=== PATIENT | female | born 1995 | race Caucasian/White ===

== ENCOUNTER 2017-10-07 20:09 | Observation (INO) | payer MEDICAID, SELFPAY ==
[~2017-10-07] VITALS: Ht 167.6 cm; Wt 82.0 kg
[2017-10-07] MEDS ORDERED: NS 2,000 ML IV ONE (21:30)
[2017-10-07] MEDS ORDERED: ONDANSETRON 4MG/2ML VIAL (J2405) IV ONE (21:30)
[2017-10-07 21:44] LABS: BASO % 0.2 % (0.0-1.0); IMMATURE GRANULOCYTE % 0.6 % (0-0); LYMPH # 1.8 10^3/uL (1.5-6.5); LYMPH % 14.3 % (24.0-44.0); MEAN CORPUSCULAR HEMOGLOBIN 29.7 pg (27.0-33.0); MEAN CORPUSCULAR HGB CONC 35.2 g/dl (32.0-36.5); MEAN CORPUSCULAR VOLUME 84.3 fl (80.0-96.0); MONO # 0.9 10^3/uL (0.0-0.8); MONO % 6.8 % (0.0-5.0); NEUTROPHILS # 9.8 10^3/uL (1.8-7.7); NEUTROPHILS % 78.1 % (36.0-66.0); PLATELET COUNT, AUTOMATED 334 10^3/uL (150-450); RED CELL DISTRIBUTION WIDTH 12.6 % (11.5-14.5); WHITE BLOOD COUNT 12.6 10^3/uL (4.0-10.0)
[2017-10-07 22:07] LABS: ALBUMIN 4.4 GM/DL (3.2-5.2); ALBUMIN/GLOBULIN RATIO 0.98 (1.00-1.93); ALKALINE PHOSPHATASE 95 U/L (45-117); ALT/SGPT 81 U/L (12-78); ANION GAP 16 MEQ/L (8-16); AST/SGOT 57 U/L (7-37); BILIRUBIN,DIRECT 2.1 MG/DL (0.0-0.2); BILIRUBIN,TOTAL 3.2 MG/DL (0.2-1.0); BLOOD UREA NITROGEN 10 MG/DL (7-18); CARBON DIOXIDE LEVEL 17 MEQ/L (21-32); CHLORIDE LEVEL 107 MEQ/L (98-107); CREATININE FOR GFR 0.88 MG/DL (0.55-1.02); GLOMERULAR FILTRATION RATE > 60.0 (>60); GLUCOSE, FASTING 91 MG/DL (70-105); POTASSIUM SERUM 4.3 MEQ/L (3.5-5.1); SODIUM LEVEL 140 MEQ/L (136-145); TOTAL PROTEIN 8.9 GM/DL (6.4-8.2)
--- NOTE | 2017-10-07 22:50 | REPUSA ---
CLINICAL HISTORY: Cramping. TECHNIQUE: Realtime sonographic images were obtained in multiple projections. COMMENTS: A single intrauterine is identified with crown/rump length of 2.3 cm which corresponds to t he mean estimated gestational age of 9 weeks 0 days. heart motion is present, 185 beats per mi nute. A very small subchorionic hemorrhage is seen to the right of gestational sac. Evaluation of the maternal adnexal regions and cul-de-sac reveals no abnormalities. The estimated date of delivery is 05/12/2018. No gross anomaly is identified. IMPRESSION: 1. Single, live, intrauterine gestation, 9 weeks 0 days based on today's crown/rump length. 2. A very small subchorionic hemorrhage is seen to the right of gestational sac. 3. Estimated date of delivery is 05/12/2018.
--- NOTE | 2017-10-07 23:00 | REPUSA ---
CLINICAL HISTORY: Pain. TECHNIQUE: Realtime sonographic images were obtained in multiple projections. COMMENTS: The gallbladder is distended and filled with hyperdense echogenic sludge and/or gallstones. The gall bladder wall is thickened measuring up to 4 mm. Positive Parada's sign is reported. The findings ar e compatible with cholecystitis. The CBD measures 3 mm. The right kidney measures 9.7 cm with no evidence of hydronephrosis, renal cyst, mass or calculus. The liver is grossly unremarkable. IMPRESSION: The gallbladder is filled with echogenic sludge and/or gallstones. Findings are consistent with chol ecystitis.
[2017-10-07] MEDS ORDERED: PIPERACILLIN/TAZOBACTAM SOD 3.375 GM in APPROPRIATE DILUENT 1 EA IV ONE (23:30)
[2017-10-08 00:35] VITALS: BP 122/56
[2017-10-08] MEDS ORDERED: ACETAMINOPHEN 500 MG TAB PO PRN (01:30)
[2017-10-08] MEDS: PROMETHAZINE INJ 25 MG/ML VIAL (J2550) IV PRN ×3 (01:42→23:58)
[2017-10-08] MEDS: LR 1,000 ML IV SCH ×4 (01:42→23:58)
[2017-10-08] MEDS: PRENATAL VITAMINS CHEWABLE TABLET PO SCH (07:57)
[2017-10-08 08:00] VITALS: BP 119/54
[2017-10-08 09:31] LABS: MEAN CORPUSCULAR HEMOGLOBIN 30.2 pg (27.0-33.0); MEAN CORPUSCULAR HGB CONC 35.4 g/dl (32.0-36.5); MEAN CORPUSCULAR VOLUME 85.3 fl (80.0-96.0); PLATELET COUNT, AUTOMATED 258 10^3/uL (150-450); RED CELL DISTRIBUTION WIDTH 12.9 % (11.5-14.5); WHITE BLOOD COUNT 9.9 10^3/uL (4.0-10.0)
[2017-10-08 10:03] LABS: ALBUMIN 3.2 GM/DL (3.2-5.2); ALKALINE PHOSPHATASE 68 U/L (45-117); ALT/SGPT 60 U/L (12-78); ANION GAP 11 MEQ/L (8-16); AST/SGOT 37 U/L (7-37); BLOOD UREA NITROGEN 7 MG/DL (7-18); CALCIUM LEVEL 8.4 MG/DL (8.5-10.1); CARBON DIOXIDE LEVEL 17 MEQ/L (21-32); CHLORIDE LEVEL 114 MEQ/L (98-107); GLOMERULAR FILTRATION RATE > 60.0 (>60); GLUCOSE, FASTING 73 MG/DL (70-105); POTASSIUM SERUM 3.9 MEQ/L (3.5-5.1); SODIUM LEVEL 142 MEQ/L (136-145); TOTAL PROTEIN 6.4 GM/DL (6.4-8.2)
--- NOTE | 2017-10-08 15:49 | CR ---
DATE OF CONSULTATION: 10/08/2017 CHIEF COMPLAINT: Nausea and vomiting. HISTORY OF PRESENT ILLNESS: The patient is a 22-year-old female who lives in [place], currently here visiting her boyfriend, for the last three days she has had lots of nausea and vomiting, With the vomiting, she was having some abdominal pains. She was just found out that she was a couple of weeks ago and has not setup any care for that as of yet. She is planning to do so in two more weeks when she returns to [place]. In the emergency room (ER), her laboratories were slightly elevated with an elevated white count, elevated bilirubin and liver function tests (LFTs) and an ultrasound was obtained showing that there was a gallbladder filled with stones and sludge, also with a thickened gallbladder wall concerning for acute cholecystitis. Therefore, I was called to evaluate. Due to her elevated bilirubins, there is concern for potential choledocholithiasis as well and we do not currently have gastroenterology (GI) capable of doing an endoscopic retrograde cholangiopancreatography (ERCP) on a female. However, I agreed to monitor her under region manager's care in case this resolves on its own over the next 24 hours. Currently, she denies any nausea or vomiting. No fever, sweats or chills. Her abdominal pain has completely subsided and at this time, she is just currently hungry. She has been nothing by mouth since reaching the emergency room, but the rest of her symptoms have resolved. PAST MEDICAL HISTORY: Negative. PAST SURGICAL HISTORY: Negative. ALLERGIES: None. HOME MEDICATIONS: None. SOCIAL HISTORY: Denies drug, alcohol, or tobacco abuse. FAMILY HISTORY: Noncontributory. REVIEW OF SYSTEMS: Pertinent positives and negatives stated in the history of present illness (HPI). PHYSICAL EXAMINATION: GENERAL: Alert and oriented times three. No acute distress. VITAL SIGNS: Temperature 98.5, pulse 63, respirations 18, blood pressure 122/56, pulse oximetry 98% on room air. HEENT: Pupils are equally round and reactive to light and accommodation. HEART: S1, S2, regular rate and rhythm. LUNgS: Clear to auscultation bilaterally. ABDOMEN: Soft, nontender, nondistended. Bowel sounds positive. EXTREMITIES: No clubbing, cyanosis, or edema. LABORATORY DATA: White count 12.6 on admission, down to 9.9, hemoglobin 11.5, total bilirubin 3.2, down to 3, direct bilirubin 2.1, down to 2, AST 57, down to 37, ALT 81, down to 60. IMAGING STUDIES: Gallbladder ultrasound shows a distended gallbladder filled with stones with a wall thickening up to 4 mm with a positive sonographic Parada's sign. ASSESSMENT AND PLAN: The patient is a 22-year-old female, currently nine weeks , presenting with signs of acute cholecystitis and possible choledocholithiasis. Recommendation at this time is to start her on a clear liquid diet. Continue to monitor her laboratories for another 24 hours. If her bilirubins continue to trend downwards, she can be discharged home and continue with antibiotics for another week. However, if her bilirubins stay where they are or start to increase then she may need to be transferred to [place] to consider endoscopic retrograde cholangiopancreatography (ERCP), because our photographer finish (GI) biodiesel plant operations engineer here is not comfortable performing the ERCP on a female. I discussed the risks and benefits of surgery with her. At this point, we are going to try to avoid surgery during the first trimester if possible and since her laboratories and white count have improved, I do not think that she is in any need for emergent surgery at this time. If her symptoms do not resolve or start to get worse again then we will definitely need to do so. Thank you for the consultation. I will continue to follow the patient with you.
--- NOTE | 2017-10-08 15:56 | HPE ---
DATE OF ADMISSION: 10/07/2017 REASON FOR ADMISSION: Cholecystitis. HISTORY OF PRESENT ILLNESS: The patient is a 22-year-old 1 who presented who presented at 9 weeks to the emergency department with acute onset of nausea, vomiting, and abdominal pain. Upon evaluation in the emergency department, she had a positive Parada's sign along with ultrasound of her gallbladder that showed sludge concerning for gallstones, findings that were consistent with cholecystitis. The patient denied any vaginal bleeding or cramping. Her course was initiated in [place] where she currently lives and she is visiting her boyfriend. PAST MEDICAL HISTORY: None. PAST SURGICAL HISTORY: None. PAST OBSTETRICAL HISTORY: She is a 1. MEDICATIONS: vitamins. ALLERGIES: She has no known drug allergies. PHYSICAL EXAMINATION: Vital signs are stable. She is afebrile. Lungs are clear to auscultation bilaterally. Cardiovascular: Heart regular rate and rhythm. Her abdomen is soft, mildly tender. Pelvic examination is deferred. ASSESSMENT: The patient is a 22-year-old 1 at 9 weeks with cholecystitis. PLAN: Admit for observation. She will be placed on nothing by mouth status and we will obtain a general surgery consultation for cholecystitis.
[2017-10-08 16:00] VITALS: BP 131/66
[2017-10-08 20:46] VITALS: BP 133/71
[2017-10-09 04:00] VITALS: BP 125/69
[2017-10-09 07:33] LABS: MEAN CORPUSCULAR HEMOGLOBIN 29.8 pg (27.0-33.0); MEAN CORPUSCULAR HGB CONC 35.3 g/dl (32.0-36.5); MEAN CORPUSCULAR VOLUME 84.4 fl (80.0-96.0); PLATELET COUNT, AUTOMATED 200 10^3/uL (150-450); WHITE BLOOD COUNT 7.5 10^3/uL (4.0-10.0)
[2017-10-09] MEDS: LR 1,000 ML IV SCH ×3 (07:47→23:45)
[2017-10-09 07:55] LABS: ALBUMIN 2.7 GM/DL (3.2-5.2); ALBUMIN/GLOBULIN RATIO 0.84 (1.00-1.93); ALKALINE PHOSPHATASE 67 U/L (45-117); ALT/SGPT 67 U/L (12-78); ANION GAP 13 MEQ/L (8-16); AST/SGOT 47 U/L (7-37); BILIRUBIN,TOTAL 2.9 MG/DL (0.2-1.0); BLOOD UREA NITROGEN 3 MG/DL (7-18); CARBON DIOXIDE LEVEL 15 MEQ/L (21-32); CHLORIDE LEVEL 110 MEQ/L (98-107); CREATININE FOR GFR 0.42 MG/DL (0.55-1.02); GLOMERULAR FILTRATION RATE > 60.0 (>60); GLUCOSE, FASTING 59 MG/DL (70-105); POTASSIUM SERUM 3.1 MEQ/L (3.5-5.1); SODIUM LEVEL 138 MEQ/L (136-145); TOTAL PROTEIN 5.9 GM/DL (6.4-8.2)
[2017-10-09 08:00] VITALS: BP 122/70
[2017-10-09] MEDS: PRENATAL VITAMINS CHEWABLE TABLET PO SCH (08:26)
[2017-10-09 16:00] VITALS: BP 136/67
[2017-10-09 20:00] VITALS: BP 145/64
[2017-10-10] VITALS: BP 127/70
[2017-10-10] MEDS: PROMETHAZINE INJ 25 MG/ML VIAL (J2550) IV PRN (03:17)
[2017-10-10 06:58] LABS: MEAN CORPUSCULAR HEMOGLOBIN 29.8 pg (27.0-33.0); MEAN CORPUSCULAR HGB CONC 36.1 g/dl (32.0-36.5); MEAN CORPUSCULAR VOLUME 82.4 fl (80.0-96.0); PLATELET COUNT, AUTOMATED 229 10^3/uL (150-450); RED CELL DISTRIBUTION WIDTH 12.7 % (11.5-14.5); WHITE BLOOD COUNT 7.4 10^3/uL (4.0-10.0)
[2017-10-10] MEDS: LR 1,000 ML IV SCH (07:03)
[2017-10-10 07:23] LABS: ALBUMIN 2.7 GM/DL (3.2-5.2); ALBUMIN/GLOBULIN RATIO 0.84 (1.00-1.93); ALKALINE PHOSPHATASE 78 U/L (45-117); ALT/SGPT 166 U/L (12-78); ANION GAP 11 MEQ/L (8-16); AST/SGOT 167 U/L (7-37); BILIRUBIN,TOTAL 1.9 MG/DL (0.2-1.0); BLOOD UREA NITROGEN 2 MG/DL (7-18); CALCIUM LEVEL 8.1 MG/DL (8.5-10.1); CARBON DIOXIDE LEVEL 20 MEQ/L (21-32); CHLORIDE LEVEL 109 MEQ/L (98-107); CREATININE FOR GFR 0.37 MG/DL (0.55-1.02); GLOMERULAR FILTRATION RATE > 60.0 (>60); GLUCOSE, FASTING 81 MG/DL (70-105); POTASSIUM SERUM 2.8 MEQ/L (3.5-5.1); SODIUM LEVEL 140 MEQ/L (136-145); TOTAL PROTEIN 5.9 GM/DL (6.4-8.2)
[2017-10-10 08:00] VITALS: BP 132/60
[2017-10-10] MEDS: KCL 20MEQ IN D5/0.45NS 1000ML 1,000 ML IV SCH ×2 (09:47→20:04)
[2017-10-10] MEDS: POTASSIUM CHLORIDE 10 MEQ SR TABLET PO SCH ×2 (09:47→20:05)
[2017-10-10] MEDS: PRENATAL VITAMINS CHEWABLE TABLET PO SCH (09:47)
[2017-10-10 14:00] VITALS: BP 125/55
[2017-10-10 20:00] VITALS: BP 116/58
[2017-10-11] VITALS: BP 136/62
[2017-10-11] MEDS: KCL 20MEQ IN D5/0.45NS 1000ML 1,000 ML IV SCH ×2 (02:35→09:21)
[2017-10-11] MEDS ORDERED: TYLE325C PO (07:41)
[2017-10-11] MEDS ORDERED: PRENCHW PO (07:41)
[2017-10-11 08:00] VITALS: BP 116/59
[2017-10-11] MEDS: POTASSIUM CHLORIDE 10 MEQ SR TABLET PO SCH (09:22)
[2017-10-11] MEDS: PRENATAL VITAMINS CHEWABLE TABLET PO SCH (09:22)
== END 2017-10-11 11:17 | disposition home or self-care (01) ==
LOC: M ED 20:09 → M ED INP 20:10 → M PED 10-08 00:30
PROVIDERS: ADMIT Obstetrics & Gynecology; ATTEND Obstetrics & Gynecology
DX: O99.611 Diseases of the digestive system complicating pregnancy, first trimester (principal); K81.0 Acute cholecystitis; Z3A.09 9 weeks gestation of pregnancy
CPT/HCPCS: 36415; 76705; 76801; 80048; 80053; 80076; 82248; 83690; 85025; 85027; 96374; 96375; 96376; 99284; J2405; J2543

== ENCOUNTER → 2018-01-05 | Outpatient (CLI) | payer OTHER, MEDICAID ==
[2018-01-05 21:07] LABS: BASO # 0.1 10^3/uL (0.0-0.2); BASO % 0.4 % (0.0-1.0); EOS % 0.2 % (0.0-3.0); HEMOGLOBIN 12.2 g/dl (12.0-16.0); IMMATURE GRANULOCYTE % 1.5 % (0-3.0); LYMPH # 2.5 10^3/uL (1.5-6.5); LYMPH % 20.7 % (24.0-44.0); MEAN CORPUSCULAR HEMOGLOBIN 30.1 pg (27.0-33.0); MEAN CORPUSCULAR VOLUME 91.4 fl (80.0-96.0); MONO # 0.6 10^3/uL (0.0-0.8); MONO % 5.3 % (0.0-5.0); NEUTROPHILS # 8.7 10^3/uL (1.8-7.7); NEUTROPHILS % 71.9 % (36.0-66.0); PLATELET COUNT, AUTOMATED 268 10^3/uL (150-450); RED BLOOD COUNT 4.05 10^6/uL (4.00-5.40); RED CELL DISTRIBUTION WIDTH 13.6 % (11.5-14.5); WHITE BLOOD COUNT 12.1 10^3/uL (4.0-10.0)
[2018-01-05 21:52] LABS: CHLAMYDIA DNA AMPLIFICATION POSITIVE (NEGATIVE); GC DNA AMPLIFICATION NEGATIVE (NEGATIVE)
[2018-01-06 10:14] LABS: RUBELLA IgG QUALITATIVE IMMUNE (IMMUNE)
[2018-01-06 10:32] LABS: HBsAg Prenatal NEGATIVE (NEGATIVE)
[2018-01-06 10:44] LABS: HIV 1&2 SCREEN CENTAUR NEGATIVE (NEGATIVE)
== END ==
LOC: M WUC 16:20
DX: Z36.89 Encounter for other specified antenatal screening (principal); Z3A.00 Weeks of gestation of pregnancy not specified
CPT/HCPCS: 86762

== ENCOUNTER → 2018-01-08 | Outpatient (CLI) | payer OTHER | LOC: M RAD 13:26 | DX: Z34.82 Encounter for supervision of other normal pregnancy, second trimester (principal) | CPT/HCPCS: 76811 ==

== ENCOUNTER → 2018-02-17 | Outpatient (CLI) | payer OTHER ==
[2018-02-17 18:54] LABS: BASO % 0.3 % (0.0-1.0); EOS % 0.2 % (0.0-3.0); HEMOGLOBIN 11.8 g/dl (12.0-15.5); IMMATURE GRANULOCYTE % 1.3 % (0-3.0); LYMPH # 2.4 10^3/uL (1.5-6.5); LYMPH % 22.1 % (24.0-44.0); MEAN CORPUSCULAR HGB CONC 32.8 g/dl (32.0-36.5); MEAN CORPUSCULAR VOLUME 91.6 fl (80.0-96.0); MONO # 0.6 10^3/uL (0.0-0.8); MONO % 5.4 % (0.0-5.0); NEUTROPHILS # 7.6 10^3/uL (1.8-7.7); NEUTROPHILS % 70.7 % (36.0-66.0); PLATELET COUNT, AUTOMATED 282 10^3/uL (150-450); RED BLOOD COUNT 3.93 10^6/uL (4.00-5.40); RED CELL DISTRIBUTION WIDTH 13.4 % (11.5-14.5); WHITE BLOOD COUNT 10.7 10^3/uL (4.0-10.0)
[2018-02-17 20:34] LABS: GLUCOSE CHALLENGE TEST 1 HOUR 105 MG/DL (LESS THAN 140)
== END ==
LOC: M SMT 13:24
DX: Z34.82 Encounter for supervision of other normal pregnancy, second trimester (principal); Z36.89 Encounter for other specified antenatal screening
CPT/HCPCS: 82950

== ENCOUNTER → 2018-03-04 | Outpatient (CLI) | payer OTHER | LOC: M SMT 14:40 | DX: Z34.83 Encounter for supervision of other normal pregnancy, third trimester (principal); Z3A.37 37 weeks gestation of pregnancy | CPT/HCPCS: 76816 ==